=== PATIENT | female | born 1995 | race Two or more races ===

== ENCOUNTER 2024-07-19 05:49 | Inpatient (IN) | payer MEDICAID, OTHER ==
[~2024-07-19] VITALS: Ht 152.4 cm; Wt 40.8 kg
[2024-07-19 06:34] LABS: ANION GAP 14 mmol/L (8-16); CALCIUM, TOTAL 9.6 mg/dL (8.8-10.5); CARBON DIOXIDE 24 mmol/L (22-29); CHLORIDE 97 mmol/L (98-107); CREATININE 0.91 mg/dL (0.60-1.30); GLOMERULAR FILTR. RATE CALC > 60 mL/min (>60); GLUCOSE,RANDOM 189 mg/dL (70-110); POTASSIUM 3.6 mmol/L (3.5-5.1); SODIUM SERUM 135 mmol/L (136-145); UREA NITROGEN, BLOOD 7 mg/dL (7-18)
[2024-07-19 06:35] LABS: BASOPHILS % (AUTO) 0.4 % (0.0-2.0); EOSINOPHILS % (AUTO) 0 % (1.0-6.0); HEMATOCRIT 43.8 % (36-46); HEMOGLOBIN 14.4 g/dL (12.0-16.0); LYMPHOCYTES % (AUTO) 10.2 % (22.0-44.0); MEAN CORPUSCULAR HEMOGLOBIN 29.5 pg (26.0-34.0); MEAN CORPUSCULAR VOLUME 90 fL (80-100); MONOCYTES # (AUTO) 0.4 K/uL (0.1-1.0); MONOCYTES % (AUTO) 3.9 % (2.0-9.0); PLATELET COUNT (AUTO) 257 K/uL (150-450); RED BLOOD CELL COUNT(AUTO) 4.89 MIL/uL (4.00-5.20); RED CELL DISTRIBUTION WIDTH 13.5 % (11.5-14.5); WHITE BLOOD COUNT (AUTO) 9.3 K/uL (4.5-11.0)
[2024-07-19 06:42] LABS: NEUTROPHILS % (AUTO) 85.5 % (40.0-70.0)
[2024-07-19 06:43] LABS: COVID AG,FIA SOURCE NASAL SWAB
[2024-07-19 06:45] LABS: ALCOHOL, BLOOD (SERUM) < 3 mg/dL (0-10)
[2024-07-19 07:21] LABS: SARS-COV2 (COVID) ANTIGEN,FIA Negative (Negative)
[2024-07-19 08:08] LABS: ALCOHOL, URINE DRUG SCREEN NEGATIVE (NEGATIVE); AMPHET/METH SCREEN,URINE POSITIVE (NEGATIVE); BARBITURATE SCREEN, URINE NEGATIVE (NEGATIVE); BENZODIAZEPINES SCREEN,URINE NEGATIVE (NEGATIVE); CANNABINOID SCREEN,URINE POSITIVE (NEGATIVE); COCAINE SCREEN,URINE NEGATIVE (NEGATIVE); METHADONE SCREEN, URINE NEGATIVE (NEGATIVE); OPIATE SCREEN,URINE NEGATIVE (NEGATIVE); PHENCYCLIDINE SCREEN,URINE NEGATIVE (NEGATIVE)
[2024-07-19] MEDS ORDERED: LORazepam 2 MG TABLET PO PRN (09:30)
[2024-07-19] MEDS ORDERED: HALOPERIDOL 5 MG TABLET PO PRN (09:30)
[2024-07-19] MEDS ORDERED: ZOLPIDEM TARTRATE 10 MG TABLET PO PRN (09:30)
[2024-07-19 13:51] VITALS: O2SAT 98
[2024-07-19 16:13] VITALS: BP 109/73; PULSE 98; RESP 15; TEMP 98.1; O2SAT 96
[2024-07-19 20:12] VITALS: BP 114/75; PULSE 100; RESP 18; TEMP 97.9; O2SAT 96
[2024-07-19] MEDS ORDERED: BACITRACIN 28 GM OINTMENT TP PRN (20:30)
[2024-07-19] MEDS ORDERED: OMEPRAZOLE 20 MG CAPSULE PO PRN (20:30)
[2024-07-19] MEDS ORDERED: ONDANSETRON 4 MG TABLET PO PRN (20:30)
[2024-07-19] MEDS ORDERED: CloNIDine HCL 0.1 MG TABLET PO PRN (20:30)
[2024-07-19] MEDS ORDERED: LOPERAMIDE HCL 2 MG CAPSULE PO PRN (20:30)
[2024-07-19] MEDS ORDERED: DOCUSATE SODIUM 100 MG CAPSULE PO PRN (20:30)
[2024-07-19] MEDS ORDERED: ALBUTEROL SULFATE HFA 90 MCG/PUFF 8 GM INHALER IH PRN (20:30)
[2024-07-19] MEDS ORDERED: IBUPROFEN 600 MG TABLET PO PRN (20:30)
[2024-07-19] MEDS ORDERED: MAGNESIUM HYDROXIDE SUSPENSION 30 ML UDCUP PO PRN (20:30)
[2024-07-19] MEDS ORDERED: MAG HYDROX/ALUMINUM HYD/SIMETH ES 30 ML SUSPENSION UDCUP PO PRN (20:30)
[2024-07-19] MEDS ORDERED: BENZOCAINE/MENTHOL [CEPACOL] LOZENGE PO PRN (20:30)
[2024-07-19] MEDS ORDERED: PETROLATUM,WHITE 28 GM JELLY TP PRN (20:30)
[2024-07-19] MEDS ORDERED: ACETAMINOPHEN 325 MG TABLET PO PRN (20:30)
[2024-07-20 08:35] LABS: APPEARANCE,URINE CLEAR (CLEAR); BILIRUBIN,URINE NEGATIVE (NEGATIVE); COLOR,URINE LIGHT YELLOW (YELLOW); GLUCOSE, URINE (UA) NEGATIVE (NEGATIVE); LEUKOCYTE ESTERASE ,URINE NEGATIVE (NEGATIVE); NITRATE,URINE NEGATIVE (NEGATIVE); OCCULT BLOOD,URINE NEGATIVE (NEGATIVE); PH,URINE 7.5 (5.0-8.0); PROTEIN,URINE NEGATIVE (NEGATIVE); SPECIFIC GRAVITIY, URINE 1.011 (1.003-1.030); UROBILINOGEN,URINE <=1.0 mg/dL (<=1.0)
[2024-07-20 08:43] VITALS: BP 112/76; PULSE 98; RESP 18; TEMP 97.6; O2SAT 97
[2024-07-20 10:41] LABS: GLUCOMETER DEV NAME(LOC) BV3S.2; GLUCOSE,POINT OF CARE 125 MG/DL (70-110)
[2024-07-20] MEDS: RisperiDONE 1 MG TABLET PO SCH (18:00)
[2024-07-20 22:40] VITALS: BP 105/66; RESP 18; TEMP 97.8; O2SAT 98
[2024-07-21 08:17] VITALS: RESP 16
[2024-07-21 08:30] LABS: HEMOGLOBIN A1C 5.1 % (3.8-5.6)
[2024-07-21 08:48] LABS: THYROID STIMULATING HORMONE 1.28 uIU/mL (0.36-3.74)
[2024-07-21 20:09] VITALS: BP 110/69; PULSE 78; RESP 16; TEMP 97.3; O2SAT 98
[2024-07-22 08:22] VITALS: BP 106/83; PULSE 90; RESP 16; TEMP 97.6; O2SAT 99
[2024-07-22 20:56] VITALS: BP 116/80; PULSE 92; RESP 16; TEMP 97.4; O2SAT 98
[2024-07-23 08:10] VITALS: BP 110/79; PULSE 100; RESP 16; TEMP 97.6; O2SAT 98
[2024-07-23] MEDS ORDERED: RISP-31 PO (13:06)
== END 2024-07-23 18:18 | disposition home or self-care (01) | DRG 751 ==
LOC: EMS 05:52 → B3A 13:10
PROVIDERS: ADMIT Psychiatry & Neurology Psychiatry; ATTEND Psychiatry & Neurology Psychiatry
DX: F29 Unspecified psychosis not due to a substance or known physiological condition (principal); Z91.199 Patient's noncompliance with other medical treatment and regimen due to unspecified reason; E11.65 Type 2 diabetes mellitus with hyperglycemia; F15.10 Other stimulant abuse, uncomplicated; Z20.822 Contact with and (suspected) exposure to COVID-19; F41.9 Anxiety disorder, unspecified; G47.00 Insomnia, unspecified; K59.00 Constipation, unspecified; F12.90 Cannabis use, unspecified, uncomplicated; Z79.899 Other long term (current) drug therapy
CPT/HCPCS: 80048; 80061; 80307; 81003; 82962; 83036; 84443; 84703; 85025; 99285; G0480; Q0162